=== PATIENT | male | born 1995 | race Caucasian/White ===

== ENCOUNTER 2021-03-22 04:39 | Emergency (ER) | payer MEDICAID ==
[~2021-03-22] VITALS: Ht 175.3 cm; Wt 91.0 kg
[2021-03-22 05:52] LABS: BASOPHILS % 0.8 % (0.0-2.0); EOSINOPHILS % 5.5 % (0.0-5.0); HEMATOCRIT. 48.8 % (42.0-52.0); HEMOGLOBIN. 17.1 g/dL (14.0-18.0); LYMPHOCYTES % 18.9 % (20.0-50.0); MEAN CORPUSCULAR HEMOGLOBIN 31.9 pg (28.0-32.0); MEAN CORPUSCULAR VOLUME 90.9 fL (80.0-94.0); MEAN PLATELET VOLUME 8.6 fl (7.4-10.4); MONOCYTES % 8.3 % (2.0-8.0); NEUTROPHILS % 66.5 % (40.0-76.0); PLATELET 215 x1000/uL (130-400); RED BLOOD CELL COUNT 5.37 mill/uL (4.7-6.1); RED CELL DISTRIBUTION WIDTH 13.7 % (11.6-14.6)
[2021-03-22 05:59] LABS: CHLORIDE 97 mEq/L (98-107)
[2021-03-22] MEDS ORDERED: KETOROLAC 30MG/ML VIAL IV ONE (07:30)
[2021-03-22] MEDS ORDERED: TOPUD PO (09:46)
[2021-03-22 10:34] VITALS: BP 129/87
== END 2021-03-22 10:36 | disposition home or self-care (01) ==
LOC: ER 04:39
DX: R07.89 Other chest pain (principal); R03.0 Elevated blood-pressure reading, without diagnosis of hypertension
CPT/HCPCS: 36415; 71045; 80053; 83880; 84484; 85025; 85379; 93005; 96374; 99285; J1885

== ENCOUNTER 2022-12-14 00:50 | Emergency (ER) | payer MEDICAID ==
[~2022-12-14] VITALS: Ht 175.3 cm; Wt 86.0 kg
[~2022-12-14 00:50] MED LIST: TOPUD PO
[2022-12-14] MEDS ORDERED: KETOROLAC 30MG/ML VIAL IV STA (01:32)
[2022-12-14 01:33] LABS: BASOPHILS % 0.4 % (0.0-2.0); EOSINOPHILS % 0.2 % (0.0-5.0); HEMATOCRIT. 47.7 % (42.0-52.0); HEMOGLOBIN. 16.6 g/dL (14.0-18.0); LYMPHOCYTES % 12.6 % (20.0-50.0); MEAN CORPUSCULAR HEMOGLOBIN 32.4 pg (28.0-32.0); MEAN CORPUSCULAR VOLUME 93.4 fL (80.0-94.0); MEAN PLATELET VOLUME 9.1 fl (7.4-10.4); MONOCYTES % 7.4 % (2.0-8.0); NEUTROPHILS % 79.4 % (40.0-76.0); PLATELET 250 x1000/uL (130-400); RED BLOOD CELL COUNT 5.11 mill/uL (4.7-6.1); RED CELL DISTRIBUTION WIDTH 14.4 % (11.6-14.6)
[2022-12-14 01:43] LABS: CHLORIDE 101 mEq/L (98-107)
[2022-12-14] MEDS ORDERED: SODIUM CHLORIDE 0.9% 1,000 ML IV ONE (01:45)
[2022-12-14] MEDS ORDERED: IOHEXOL-350 100 ML BOTTLE ONE (03:30)
[2022-12-14] MEDS ORDERED: LORAZEPAM 2MG/ML CPJ IV NR (04:30)
[2022-12-14 05:06] VITALS: BP 131/70
== END 2022-12-14 05:16 | disposition home or self-care (01) ==
LOC: ER 01:06
DX: R07.89 Other chest pain (principal); R00.0 Tachycardia, unspecified; F15.10 Other stimulant abuse, uncomplicated
CPT/HCPCS: 36415; 71045; 71275; 80053; 84484; 85025; 85379; 93005; 96361; 96374; 96375; 99291; J1885; J2060; J7030; Q9967; Z7610